=== PATIENT | female | born 1980 | race Caucasian/White ===

== ENCOUNTER 2016-07-04 11:24 | Emergency (ER) | payer MEDICAID ==
[~2016-07-04] VITALS: Ht 170.2 cm; Wt 150.0 kg
[2016-07-04] VITALS (7 sets, daily range): BP systolic 178–213; BP diastolic 87–130; PULSE 110–120; RESP 16–20; TEMP 100.3–102.4; O2SAT 95–97
[~2016-07-04 11:24] MED LIST: ALBU8I INH; AMOX500T PO; EXCETAB PO; PHENTAB PO; [UNRECOGNIZED DRUG - CODE] PO
[2016-07-04] MEDS ORDERED: KETOROLAC TROMETHAMINE 30 MG/ML (IVP) VIAL IV PUSH ONE (12:15)
[2016-07-04] MEDS ORDERED: SODIUM CHLOR 0.9% 1000 ML INJ 1,000 ML IV ONE (12:15)
--- NOTE | 2016-07-04 12:17 | PD ---
HPI Chief Complaint: Cold / Flu Symptoms Time Seen by Provider: 12:07 Travel History International Travel<30 days: No Contact w/Intl Traveler<30days: No Traveled to known affect area: No History of Present Illness HPI This is a 35-year-old female who presents to the emergency department with 3 days of fevers, chills, myalgias, headache described as in the front of her head radiating to the back, also involving the neck, as well as sore throat and chest tightness and cough. Symptoms have been constant and worsening over the past 2 days. 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 He has a remote history of IV drug use 3 years ago. [facility] Past Medical History Diminished Hearing: No Hypertension: Yes (WITH PAIN ONLY) Immunizations Current: No Migraines: Yes ?: Not LMP: 2 WEEK AGO Menopausal: No : 2 Para: 2 Ectopic : No Ovarian Cysts: No Dilation and Curettage (D&C): No Tubal Ligation: Yes (2003) Past Surgical History Section: No Gynecologic Surgery: Yes Hysterectomy: No Social History Alcohol Use: No Tobacco Use: Yes (3PACK/ WEEK) Substance Use: No Allergies-Medications (Allergen,Severity, Reaction): Coded Allergies: No Known Allergies (Verified , 07/04/16) Reported Meds & Prescriptions Reported Meds & Active Scripts Active No Active Prescriptions or Reported Medications Review of Systems Except as stated in HPI: all other systems reviewed are Neg Physical Exam Narrative GENERAL: Morbidly obese, no acute distress. SKIN: Warm and dry. HEAD: Atraumatic. Normocephalic. EYES: Pupils equal and round. No injection or drainage. ENT: Moist mucous membranes. Some posterior pharyngeal erythema with no exudates. No cervical lymphadenopathy. NECK: Trachea midline. No meningismus. CARDIOVASCULAR: Tachycardic. No murmur appreciated. RESPIRATORY: Clear to auscultation. Breath sounds equal bilaterally. GASTROINTESTINAL: Abdomen soft, non-tender, nondistended. MUSCULOSKELETAL: No obvious deformities. NEUROLOGICAL: Awake and alert. No obvious cranial nerve deficits. Moving all extremities. PSYCHIATRIC: Appropriate mood and affect; insight and judgment normal. Data Data Last Documented VS Vital Signs Date Time Temp Pulse Resp B/P Pulse Ox O2 Delivery O2 Flow Rate FiO2 07/04/16 12:35 102.4 110 18 179/116 96 Room Air Orders Complete Blood Count With Diff (07/04/16 12:14) Comprehensive Metabolic Panel (07/04/16 12:14) Influenzae A/B Antigen (07/04/16 12:14) Blood Culture (07/04/16 12:14) Blood Glucose (07/04/16 12:14) Ecg Monitoring (07/04/16 12:14) Iv Access Insert/Monitor (07/04/16 12:14) Oximetry (07/04/16 12:14) Oxygen Administration (07/04/16 12:14) Group A Rapid Strep Screen (07/04/16 12:14) ^ Insert Iv (07/04/16 12:14) Ketorolac Inj (Toradol Inj) (07/04/16 12:15) Sodium Chlor 0.9% 1000 Ml Inj (Ns 1000 M (07/04/16 12:15) Strep Culture (Group A) (07/04/16 12:50) Acetaminophen (Tylenol) (07/04/16 13:30) Labs Laboratory Tests Test 07/04/16 12:55 White Blood Count 5.4 TH/MM3 Red Blood Count 5.78 MIL/MM3 Hemoglobin 15.1 GM/DL Hematocrit 46.6 % Mean Corpuscular Volume 80.5 FL Mean Corpuscular Hemoglobin 26.2 PG Mean Corpuscular Hemoglobin 32.5 % Concent Red Cell Distribution Width 17.4 % Platelet Count 183 TH/MM3 Mean Platelet Volume 10.2 FL Neutrophils (%) (Auto) 64.3 % Lymphocytes (%) (Auto) 22.2 % Monocytes (%) (Auto) 12.3 % Eosinophils (%) (Auto) 0.6 % Basophils (%) (Auto) 0.6 % Neutrophils # (Auto) 3.5 TH/MM3 Lymphocytes # (Auto) 1.2 TH/MM3 Monocytes # (Auto) 0.7 TH/MM3 Eosinophils # (Auto) 0.0 TH/MM3 Basophils # (Auto) 0.0 TH/MM3 CBC Comment DIFF FINAL Differential Comment Sodium Level 138 MEQ/L Potassium Level 4.1 MEQ/L Chloride Level 100 MEQ/L Carbon Dioxide Level 28.6 MEQ/L Anion Gap 9 MEQ/L Blood Urea Nitrogen 6 MG/DL Creatinine 0.75 MG/DL Estimat Glomerular Filtration 87 ML/MIN Rate Random Glucose 157 MG/DL Calcium Level 8.7 MG/DL Total Bilirubin 0.3 MG/DL Aspartate Amino Transf 53 U/L (AST/SGOT) Alanine Aminotransferase 74 U/L (ALT/SGPT) Alkaline Phosphatase 109 U/L Total Protein 8.3 GM/DL Albumin 3.1 GM/DL [facility] Medical Decision Making Medical Screen Exam Complete: Yes Emergency Medical Condition: Yes Interpretation(s) Fever, tachycardia, hypertensive No leukocytosis Monocytic shift Mild transaminitis Rapid strep is negative Influenza is negative Differential Diagnosis Influenza, strep pharyngitis, viral pharyngitis, viral meningitis, sepsis, endocarditis Narrative Course This is a 35-year-old female who presents to the emergency department with fevers, headache, sore throat and cough. I suspect she has a viral syndrome. Labs were obtained which were reassuring with a monocytic shift suggesting a virus. Influenza was negative. Rapid strep was negative. I did obtain cultures given the patient's remote history of IV drug use and I will follow-up on them in 2 days. I have low suspicion for endocarditis otherwise. The patient was given IV hydration, Toradol, Compazine, and Benadryl. I think she is nontoxic appearing and safe to go home. Diagnosis Primary Impression: Viral syndrome Patient Instructions: General Instructions Additional Instructions: If you develop severe chest pain, shortness of breath, sweating, lightheadedness , dizziness or difficulty breathing return to the emergency department immediately. Followup with your primary care physician in 2-3 days if your symptoms are not resolved. Med/Other Pt SpecificInfo: Prescription(s) given Scripts Promethazine-Codeine Liq 6.25-10 Mg/5 Ml Syrp5 Ml PO Q4H PRN (COUGH AND/OR COLD SYMPTOMS) #100 ML Prov:Nancy Kaur MD 07/04/16 Naproxen 500 Mg [id number] Mg PO BID PRN (PAIN SCALE 4 TO 10) #20 TAB Prov:Nancy Kaur MD 07/04/16 Disposition: 01 DISCHARGE HOME Condition: Stable Nancy Kaur MD Jul 04, 2016 12:17
[2016-07-04 13:07] LABS: AUTOMATED NEUTROPHIL # 3.5 TH/MM3 (1.8-7.7); BASOPHIL % 0.6 % (0.0-2.0); EOSINOPHIL % 0.6 % (0.0-4.0); HEMATOCRIT 46.6 % (35.0-46.0); HEMO FLAGS DIFF FINAL; LYMPH % 22.2 % (9.0-44.0); LYMPHOCYTE # 1.2 TH/MM3 (1.0-4.8); MEAN CELL VOLUME 80.5 FL (80.0-100.0); MEAN CORPUSCULAR HEMOGLOBIN 26.2 PG (27.0-34.0); MEAN CORPUSCULAR HGB CONC 32.5 % (32.0-36.0); MONO % 12.3 % (0.0-8.0); NEUT % 64.3 % (16.0-70.0); PLATELET COUNT 183 TH/MM3 (150-450); RED BLOOD COUNT 5.78 MIL/MM3 (4.00-5.30); RED CELL DISTRIBUTION WIDTH 17.4 % (11.6-17.2); WHITE BLOOD COUNT 5.4 TH/MM3 (4.0-11.0)
[2016-07-04 13:16] LABS: CHLORIDE 100 MEQ/L (98-107); POTASSIUM 4.1 MEQ/L (3.5-5.1); SODIUM (NA) 138 MEQ/L (136-145)
[2016-07-04 13:19] LABS: ANION GAP 9 MEQ/L (5-15); BICARBONATE 28.6 MEQ/L (21.0-32.0)
[2016-07-04 13:20] LABS: BLOOD UREA NITROGEN 6 MG/DL (7-18)
[2016-07-04 13:23] LABS: ALT (GPT) 74 U/L (10-53); AST (GOT) 53 U/L (15-37); GLOMERULAR FILTRATION RATE 87 ML/MIN (>89)
[2016-07-04 13:24] LABS: TOTAL BILIRUBIN ADULT 0.3 MG/DL (0.2-1.0)
[2016-07-04 13:25] LABS: ALKALINE PHOSPHATASE 109 U/L (45-117)
[2016-07-04] MEDS ORDERED: ACETAMINOPHEN 500 MG CPLT PO ONE (13:30)
[2016-07-04] MEDS ORDERED: NAPR500T PO (13:38)
[2016-07-04] MEDS ORDERED: PROM6.256 PO (13:38)
[2016-07-04] MEDS ORDERED: PROCHLORPERAZINE INJ 10 MG/2 ML VIAL IVS ONE (13:45)
[2016-07-04] MEDS ORDERED: diphenhydrAMINE HCL 50 MG/ML VIAL IV PUSH ONE (13:45)
[2016-07-04] MEDS ORDERED: cloNIDine HCL 0.2 MG TAB PO ONE (16:00)
== END 2016-07-04 17:37 | disposition home or self-care (01) ==
LOC: PHED 11:24
DX: R00.0 Tachycardia, unspecified (principal); B34.9 Viral infection, unspecified
CPT/HCPCS: 80053; 85025; 86308; 87040; 87081; 87804; 87880; 96361; 96374; 96375; 99285; J0780; J1200; J1885; J7030

== ENCOUNTER 2017-01-19 21:54 | Emergency (ER) | payer MEDICAID ==
[~2017-01-19] VITALS: Ht 170.2 cm; Wt 170.4 kg
[~2017-01-19 21:54] MED LIST changes: -ALBU8I INH; -AMOX500T PO; -EXCETAB PO; +NAPR500T PO; -PHENTAB PO; +PROM6.256 PO; -[UNRECOGNIZED DRUG - CODE] PO
[2017-01-19 22:14] VITALS: BP 213/112; PULSE 101; RESP 18; TEMP 98.4; O2SAT 97
[2017-01-19 23:58] VITALS: BP 185/84; PULSE 92; RESP 20; TEMP 98.3; O2SAT 98
--- NOTE | 2017-01-20 00:13 | PD ---
HPI Chief Complaint: Injury Time Seen by Provider: 00:07 Travel History International Travel<30 days: No Contact w/Intl Traveler<30days: No Traveled to known affect area: No History of Present Illness HPI The patient is a 36-year-old right-hand dominant female that hit her right forearm against a door handle at 5 PM this evening. The patient has a bruise and thinks she may have broken it. She denies any numbness, weakness of the right hand. PFS Past Medical History Diabetes: Yes Diminished Hearing: No Hypertension: No (WITH PAIN ONLY) Immunizations Current: No Migraines: Yes ?: Not LMP: 01/2017 Menopausal: No : 2 Para: 2 Ectopic : No Ovarian Cysts: No Dilation and Curettage (D&C): No Tubal Ligation: Yes (2003) Past Surgical History Section: No Gynecologic Surgery: Yes Hysterectomy: No Other Surgery: Yes (left ankle) Social History Alcohol Use: No Tobacco Use: Yes (3PACK/ WEEK) Substance Use: No Allergies-Medications (Allergen,Severity, Reaction): Coded Allergies: No Known Allergies (Verified , 07/04/16) Reported Meds & Prescriptions Reported Meds & Active Scripts Active Naproxen 500 Mg Tab 500 Mg PO BID PRN Reported Lisinopril 20 Mg Tab 20 Mg PO DAILY Norvasc (Amlodipine Besylate) 5 Mg Tab 5 Mg PO DAILY Review of Systems Except as stated in HPI: all other systems reviewed are Neg Physical Exam Narrative GENERAL: The patient is alert, oriented 3 in slight apparent distress with her right forearm contusion. Her blood pressure initially was 213/112 and repeat is 185/84. SKIN: Focused skin assessment warm/dry. There is a reddened area on the dorsum of the right forearm. No bony deformities noted. HEAD: Atraumatic. Normocephalic. EYES: Pupils equal and round. No scleral icterus. No injection or drainage. ENT: No nasal bleeding or discharge. Mucous membranes pink and moist. NECK: Trachea midline. No JVD. CARDIOVASCULAR: Regular rate and rhythm. No murmur appreciated. RESPIRATORY: No accessory muscle use. Clear to auscultation. Breath sounds equal bilaterally. GASTROINTESTINAL: Abdomen soft, non-tender, nondistended. Hepatic and splenic margins not palpable. MUSCULOSKELETAL: No obvious deformities. No clubbing. No cyanosis. No edema. There is no bony deformity of the right forearm. Good capillary refill and pinprick is present distally on the right hand. NEUROLOGICAL: Awake and alert. No obvious cranial nerve deficits. Motor grossly within normal limits. Normal speech. PSYCHIATRIC: Appropriate mood and affect; insight and judgment normal. Data Data Last Documented VS Vital Signs Date Time Temp Pulse Resp B/P (MAP) Pulse Ox O2 Delivery O2 Flow Rate FiO2 01/19/17 23:58 98.3 92 20 185/84 (117) 98 Orders Orders Forearm (2vws) (01/20/17 00:14) Foot, Complete ([id number]) (01/20/17 00:27) Lidocai-Epi 1%-1:100,000 Inj (Xylocaine- (01/20/17 01:15) MDM Medical Decision Making Medical Screen Exam Complete: Yes Emergency Medical Condition: Yes Medical Record Reviewed: Yes Interpretation(s) X-rays of the right forearm show no fracture and no foreign body is seen on the x-rays of the left foot. Differential Diagnosis Contusion forearm, fracture forearm Narrative Course The patient has a contusion of her right forearm. Procedures Procedure Narrative The area of the skin on the left foot was cleaned with Betadine. The area was then infiltrated with lidocaine with epinephrine. An incision and drainage was done and some pus was recovered and a questionable sliver type foreign body was recovered. The patient is told that this may not be all of the foreign body. The wound was explored after the foreign body was removed and no other foreign body found. Nevertheless, a small sliver could hide in the tissues and not be seen. Diagnosis Primary Impression: Contusion of right forearm Additional Impression: Foreign body in left foot Additional Instructions: As we discussed, soak your foot in warm water. If you still have problems with a foreign body sensation on the foot you should follow-up with a mimeograph operator. Disposition: 01 DISCHARGE HOME Condition: Stable Vishal Lee MD Jan 20, 2017 00:13
[2017-01-20] MEDS ORDERED: LISI-515 PO (00:18)
[2017-01-20] MEDS ORDERED: AMLO5 PO (00:18)
--- NOTE | 2017-01-20 00:42 | RADRPT ---
EXAM DATE/TIME: 01/20/2017 00:27 [facility] COMPARISON: No previous studies available for comparison. INDICATIONS : Right forearm pain. MEDICAL HISTORY : None. SURGICAL HISTORY : None. ENCOUNTER: Initial ACUITY: 1 day PAIN SCORE: 8/10 LOCATION: Right upper extremity FINDINGS: Two view examination of the right forearm demonstrates no evidence of fracture or dislocation. Bony mineralization is normal. The soft tissue structures are intact. CONCLUSION: Negative exam. No fracture or radiopaque foreign body. Jaime Sheikh MD on January 20, 2017 at 0:40 Board Certified Radiologist. This report was verified electronically.
--- NOTE | 2017-01-20 00:54 | RADRPT ---
EXAM DATE/TIME: 01/20/2017 00:41 [facility] COMPARISON: No previous studies available for comparison. INDICATIONS : Evaluate for foreign body. Stepped on glass. MEDICAL HISTORY : None. SURGICAL HISTORY : None. ENCOUNTER: Initial ACUITY: 1 week PAIN SCORE: 6/10 LOCATION: Left foot FINDINGS: Three view examination of the right foot demonstrates no soft tissue swelling, dislocation, or fractu re. Punctate calcific density in the DIP joint of the first ray may represent old avulsion injury. The tarsal bones appear intact. The interphalangeal and metatarsophalangeal joints are intact. Small calcaneal spur. No radiopaque foreign body. Bony mineralization is normal. CONCLUSION: 1. Small calcaneal spur at the plantar aponeurosis. 2. No radiopaque foreign body. 3. Punctate calcific density near the DIP joint of the first ray is overtly benign and may or present capsular calcification or old avulsion injury. No acute fracture. Jaime Sheikh MD on January 20, 2017 at 0:50 Board Certified Radiologist. This report was verified electronically.
[2017-01-20] MEDS ORDERED: LIDOCAINE 1%/EPINEPHrine 1:100,000 SOLN 20 ML VIAL INFIL ONE (01:15)
[2017-01-20 01:59] VITALS: BP 176/84
[2017-01-20] MEDS ORDERED: LIDOCAINE 2%/EPINEPHrine PF 1:200,000 20ML SDV INFIL ONE (02:00)
== END 2017-01-20 02:06 | disposition home or self-care (01) ==
LOC: PHED 21:54
DX: S50.11XA Contusion of right forearm, initial encounter (principal); S90.852A Superficial foreign body, left foot, initial encounter; X58.XXXA Exposure to other specified factors, initial encounter; F17.200 Nicotine dependence, unspecified, uncomplicated
CPT/HCPCS: 10060; 73090; 73630